=== PATIENT | male | born 1980 | race Caucasian/White ===

== ENCOUNTER 2019-04-05 10:15 | Outpatient (CLI) | payer BC, SELFPAY ==
[2019-04-05 14:14] LABS: Cholesterol 223 mg/dL (50-200); HDL Cholesterol 67 mg/dL (40-60); LDL CHOLESTEROL 141 mg/dL (<100); Triglyceride 60 mg/dL (30-150)
== END 2019-04-05 10:35 ==
PROVIDERS: PCP Family Medicine; Visit Provider Family Medicine
DX: E78.5 Hyperlipidemia, unspecified (principal)
CPT/HCPCS: 36415; 80061; 83721

== ENCOUNTER 2021-04-02 09:06 | Outpatient (CLI) | payer BC, SELFPAY ==
[2021-04-02 13:11] LABS: Calculated LDL 155 mg/dL (<100); Cholesterol 243 mg/dL (<200); Glucose 128 mg/dL (74-106); HDL Cholesterol 51 mg/dL (40-60); Triglyceride 186 mg/dL (<150)
[2021-04-03 09:22] LABS: Hepatitis C Ab w Rflx HCV PCR Negative (Negative)
[2021-04-05 13:55] LABS: Testosterone, Free 10.4 ng/dL (4.46-17.1); Testosterone, Total 326 ng/dL (240-950)
== END 2021-04-02 09:07 | disposition home or self-care (01) ==
LOC: LOS 09:06
PROVIDERS: PCP Family Medicine; Referring Provider Family Medicine; Visit Provider Family Medicine
DX: Z00.00 Encounter for general adult medical examination without abnormal findings (principal); E78.5 Hyperlipidemia, unspecified; R73.9 Hyperglycemia, unspecified; Z11.59 Encounter for screening for other viral diseases; R68.82 Decreased libido; R63.5 Abnormal weight gain
CPT/HCPCS: 36415; 80061; 82947; 84402; 84403; 86803

== ENCOUNTER 2021-10-27 14:34 | Emergency (ER) | payer BC, SELFPAY ==
--- NOTE | 2021-10-27 14:30 | RT.EKG_ITS ---
APPROVED REPORT Exam: Resting ECG Reason for Exam: chest pain, trouble breathing Patient Location: E HR:77 bpm ECG Measurements Heart Rate 77 AXIS KS 150 P 59 QRSd 102 QRS 50 QT 356 T 11 QTc 402 Conclusion Sinus rhythm...normal P axis, V-rate 60- 99 Probable left atrial enlargement...P >50mS, <-0.10mV V1 Consider inferior infarct...Q >35mS in II III aVF. Sinus. No STEMI. I have reviewed and interpreted ECG and agree with software generated interpretation.
[2021-10-27 14:47] VITALS: BP 150/97; PULSE 83; RESP 18; TEMP 36.6; O2SAT 97
--- NOTE | 2021-10-27 14:59 | ED.GENADUL_ITS ---
Discharge Plan Disposition Patient Disposition: HOME Condition: Stable Discharge Details Clinical Impression: Chest pain Primary Care Provider: Hector Leyva ED Provider: Aantoliy Capps Home Meds and New Rx's Prescriptions: Continued trazodone 100 mg Tablet 200 mg PO QHS RF: 0 escitalopram oxalate 20 mg Tablet 20 mg PO DAILY RF: 0 Discharge Instructions Instructions: Chest Pain (ED) Additional Instructions: Your ekg, chest xray and blood work did not show any concerning findings at this time follow up with your primary care provider within 1 week if you feel more ill, have worsening pain or difficulty breathing return to the emergency department Medical Decision Making 41 yo male who denies chronic medical problems comes in with 7 days of constant dull left sided chest pain. He states he gets tested at work frequently for covid and tested positive on 09/26 and developed cough and general weakness that resolved after a week. He had been doing well until the chest pain started. HE denies fevers, chills, dyspnea, n/v, diaphoresis, radiation of the pain or incr eased pain with exertion. He appears well systemically and has clear lungs, no murmurs, no jvd, no leg swelling or calf tenderness, no findings to suggest dvt on exam. I suspect chest wall pain less likely pleurisy. Will evaluate for possible nstemi, heart score is 2. Wells low and perc negative so doubt PE. No tearing back pain and normal vascular exam so doubt dissection. pt's labs and cxr unremarkable and he remains stable in no distress. Given his low heart score and over 3 hours since pain onset do not feel repeat troponin indicated. He is stable for d/c, advised to f/u with his pcp and return precautions given Differential Diagnosis Differential Diagnosis: chest wall pain, nstemi, costochondritis, pericarditis Imaging Data Radiologic Study: Attestation: I personally reviewed and interpreted this imaging study as follows: Imaging: X-Ray Radiologist's impression: IMPRESSION: No acute pulmonary findings. Lab Data Lab results reviewed: Yes I reviewed the patient's lab results. ECG Data Attestation: I personally reviewed and interpreted this ECG (s) as follows: Prior ECG tracings: not available for review Interpretation: sinus rhythm, rate of 77, no acute st t wave ischemic findings HPI General Mode of arrival: ambulatory . Date/Time Provider Initiated Documentation: 10/27/21 14:57 . Limitations to Documentation: no limitations . Information obtained by: patient . History of Present Illness 41 year old M presents to the emergency department with the chief complaint of chest pain, described as mild, Quality is described as aching, and is localized to the chest. Patient reports no radiation. and it has been constant. No relieving factors improve symptom(s), No exacerbating factors reported . Patient notes no other symptoms.. Patient did receive the following treatments prior to arrival, none Related Data Home Medications Medication Instructions Recorded Confirmed escitalopram oxalate 20 mg PO DAILY 10/27/21 10/27/21 trazodone 200 mg PO QHS 10/27/21 10/27/21 Allergies Allergy/AdvReac Type Severity Reaction Status Date / Time hay Allergy Other (See Uncoded 10/27/21 14:49 Comment) General Stated Complaint: Chest Pain REN: 2 Review of Systems All systems reviewed & are unremarkable except as noted in HPI and below Constitutional Constitutional: Denies chills, Denies fever(s) and Denies weakness Cardiovascular Cardiovascular: Denies dyspnea Respiratory Respiratory: Denies cough and Denies dyspnea Gastrointestinal Gastrointestinal: Denies abdominal pain, Denies nausea and Denies vomiting Musculoskeletal Musculoskeletal: Denies joint swelling Neurologic Neurologic: Denies weakness Psychiatric Psychiatric: Denies depression [facility] Active Problem List (Updated 10/27/21 @ 16:23 by Anatoliy Capps MD) Chest pain (Acute) Social History Smoking/Tobacco Use Status: Current every day Tobacco Type: smokeless tobacco Smoking risk assessment performed?: Yes Alcohol Intake: current Alcohol Intake frequency: a few times a week Alcohol type: beer Drug use: Never Substance use type: does not use Do you feel safe at home: Yes Do you feel safe in your relationship?: Yes Exam Const General: no acute distress Orientation: alert [facility] Head: normal to inspection Ears: external ears normal General nose exam: external nose normal Mouth: moist mucous membranes Eyes General: appearance normal, both eyes and all related structures Neck Neck: normal visual inspection Chest Chest: normal inspection of the chest, no crepitus and no masses Resp Effort & Inspection: normal respiratory effort and able to speak in complete sentences Cardio Rate: regular rate GI Palpation: soft and nontender Skin General skin exam: no rashes or lesions noted Neuro General: patient alert and patient oriented x3 Extrem General: normal to inspection Psych Mental Status: mental status grossly normal Course Vital Signs Vital signs: Vital Signs Temperature 36.6 C 10/27/21 14:47 Pulse 83 10/27/21 14:47 Respiratory Rate 18 10/27/21 14:47 Blood Pressure 150/97 H 10/27/21 14:47 Pulse Oximetry 97 10/27/21 14:47 Temperature 36.6 C 10/27/21 14:47 Pulse 83 10/27/21 14:47 Respiratory Rate 18 10/27/21 14:47 Respiratory Effort Non-Labored 10/27/21 14:50 Blood Pressure 150/97 H 10/27/21 14:47 Blood Pressure Position Sitting 10/27/21 14:47 Pulse Oximetry 97 10/27/21 14:47 Oxygen Delivery Method Room Air 10/27/21 14:47 Oxygen Flow Rate 0 10/27/21 14:47 Pain Level 0 10/27/21 14:47
--- NOTE | 2021-10-27 15:00 | DI.RAD_ITS ---
Exam(s) XR CHEST 2V PA LATERAL EXAM: XR CHEST 2V PA LATERAL CLINICAL HISTORY: chest pain. TECHNIQUE: 2D digital imaging was performed. COMPARISON: No exams were available for comparison FINDINGS: Heart size is normal. The mediastinum is not widened. Lungs are clear. No infiltrates nor pleural effusions. IMPRESSION: No acute pulmonary findings. DATA REPOSITORY: RADIATION DOSE DELIVERED:
[2021-10-27 15:12] VITALS: RESP 15
[2021-10-27 15:38] LABS: Abs Immature Grans 0.02 10^3/uL (0.0-0.06); Absolute Basophil Count 0.06 10^3/uL (0.0-0.2); Absolute Eosinophil Count 0.23 10^3/uL (0.0-0.7); Absolute Lymphocyte Count 1.98 10^3/uL (1.2-3.4); Absolute Monocyte Count 0.37 10^3/uL (0.1-0.8); Absolute Neutrophil Count 3.91 10^3/uL (1.2-6.7); Basophils % 0.9; Eosinophils % 3.5; HCT 43.4 % (40.0-50.0); HGB 14.8 g/dL (13.5-17.5); Immature Grans % 0.3; Lymphocytes % 30.1; MCH 29.4 pg (27.0-33.0); MCHC 34.1 % (32.0-36.0); MCV 86.3 fL (80-95); MPV 8.9 fL (8.0-11.0); Monocytes % 5.6; Neutrophils % 59.6; Nucleated RBC 0 %; Platelet Count 279 10^3/uL (130-400); RBC 5.03 10^6/uL (4.36-5.78); RDW 11.7 % (11.8-14.1); WBC 6.57 10^3/uL (4.4-10.8)
[2021-10-27 16:14] LABS: ALT 32 U/L (16-63); AST 22 U/L (15-37); Albumin 4.6 g/dL (3.4-5.0); Alkaline Phosphatase 61 U/L (46-116); BUN 17 mg/dL (7-18); Bilirubin, Total 0.5 mg/dL (0.2-1.0); Calcium 9.2 mg/dL (8.5-10.1); Chloride 102 mmol/L (98-107); Glucose 94 mg/dL (74-106); Magnesium 2.3 mg/dL (1.8-2.4); Potassium 4.1 mmol/L (3.5-5.1); Sodium 139 mmol/L (136-145); Total Protein 8.4 g/dL (6.4-8.2)
[2021-10-27 16:16] LABS: Troponin I < 0.05 ng/mL (<0.06)
[2021-10-27 16:24] VITALS: PULSE 69; RESP 19; O2SAT 94
[2021-10-27 16:30] VITALS: PULSE 72; RESP 15; O2SAT 94
[2021-10-27 16:40] VITALS: BP 137/83; PULSE 64; RESP 12; O2SAT 95
[2021-10-27 16:45] VITALS: BP 137/83; PULSE 64; RESP 12; TEMP 36.6; O2SAT 95
== END 2021-10-27 16:45 | disposition home or self-care (01) ==
PROVIDERS: Emergency Provider Emergency Medicine; PCP Family Medicine
DX: R07.89 Other chest pain (principal); U09.9 Post COVID-19 condition, unspecified
CPT/HCPCS: 36415; 80053; 93005; 99285; 71046; 83735; 84484; 85025; 93010; 99284

== ENCOUNTER 2022-11-17 04:00 | Outpatient (CLI) | payer BC, SELFPAY ==
[2022-11-17 13:20] LABS: ALT 32 U/L (16-63); AST 21 U/L (15-37); Albumin 4.1 g/dL (3.4-5.0); Alkaline Phosphatase 55 U/L (46-116); Anion Gap 7.2 mmol/L (3-11); BUN 14 mg/dL (7-18); Bilirubin, Total 0.4 mg/dL (0.2-1.0); CO2 29.8 mmol/L (21.0-32.0); CREATININE 1.2 mg/dL (0.70-1.30); Calcium 9.3 mg/dL (8.5-10.1); Calculated LDL 175 mg/dL (<100); Chloride 103 mmol/L (98-107); Cholesterol 277 mg/dL (<200); Estimated GFR 76.48 (mL/min/1.73m2); Glucose 96 mg/dL (74-106); HDL Cholesterol 65 mg/dL (40-60); Potassium 4.4 mmol/L (3.5-5.1); Sodium 140 mmol/L (136-145); Total Protein 7.4 g/dL (6.4-8.2); Triglyceride 185 mg/dL (<150)
[2022-11-17 13:33] LABS: Bilirubin, Direct 0.1 mg/dL (0.0-0.2)
== END 2022-11-17 04:01 | disposition home or self-care (01) ==
LOC: LOS 04:00
PROVIDERS: PCP Family Medicine; Visit Provider Family Medicine
DX: E78.5 Hyperlipidemia, unspecified (principal); E87.1 Hypo-osmolality and hyponatremia; G72.89 Other specified myopathies
CPT/HCPCS: 36415; 80048; 80061; 80076

== ENCOUNTER 2023-11-18 08:53 | Outpatient (CLI) | payer BC, SELFPAY ==
[2023-11-18 12:48] LABS: Calculated LDL 200 mg/dL (<100); Cholesterol 285 mg/dL (<200); Glucose 105 mg/dL (74-106); HDL Cholesterol 60 mg/dL (40-60); Triglyceride 129 mg/dL (<150)
== END 2023-11-18 08:54 | disposition home or self-care (01) ==
LOC: LOS 08:54
PROVIDERS: PCP Family Medicine; Referring Provider Family Medicine; Visit Provider Family Medicine
DX: E78.5 Hyperlipidemia, unspecified (principal); R73.9 Hyperglycemia, unspecified
CPT/HCPCS: 36415; 80061; 82947

== ENCOUNTER 2024-11-28 10:03 | Outpatient (CLI) | payer OTHER, SELFPAY ==
[2024-11-28 12:58] LABS: Calculated LDL 159 mg/dL (<100); Cholesterol 261 mg/dL (<200); HDL Cholesterol 65 mg/dL (40-60); Triglyceride 188 mg/dL (<150)
[2024-11-28 13:09] LABS: Hemoglobin A1C 5.5 % (<5.7)
[2024-11-28 23:05] LABS: PSA, Screening 0.9 ng/mL (<=2.5)
[2024-11-30 10:36] LABS: Lipoprotein (a) <7 nmol/L (<75)
== END 2024-11-28 10:04 | disposition home or self-care (01) ==
LOC: LOS 10:03
PROVIDERS: PCP Family Medicine; Visit Provider Family Medicine
DX: E78.5 Hyperlipidemia, unspecified (principal); R73.9 Hyperglycemia, unspecified; Z12.5 Encounter for screening for malignant neoplasm of prostate
CPT/HCPCS: 36415; 80061; 83695; 84153; 83036

== ENCOUNTER 2025-06-20 07:30 | Outpatient (CLI) | payer OTHER, SELFPAY ==
--- NOTE | 2025-06-20 07:30 | RT.EKG_ITS ---
APPROVED REPORT Exam: Resting ECG Reason for Exam: Chest pressure Patient Location: O HR:72 bpm ECG Measurements Heart Rate 72 AXIS OK 155 P 64 QRSd 95 QRS 61 QT 380 T 20 QTc 416 Conclusion Sinus rhythm...normal P axis, V-rate 50- 99 Consider RVH or posterior infarct...large R in V1 Nondiagnostic l inferior Q waves...Qs add to 80 mS in II III aVF
== END 2025-06-20 07:31 | disposition home or self-care (01) ==
LOC: DI.CM 07:31
PROVIDERS: PCP Family Medicine; Visit Provider Family Medicine
DX: Z71.89 Other specified counseling (principal)
CPT/HCPCS: 93010

== ENCOUNTER 2025-06-25 01:09 | Outpatient (CLI) | payer OTHER, SELFPAY ==
--- NOTE | 2025-06-25 05:45 | ETT_ITS ---
APPROVED REPORT Exam: Exercise Treadmill Patient Location: Out-Patient Room/Bed: Stress Nurse: Arti Juarez RN, Lynn Montgomery RN Ordering Provider:ASHOK JEAN, Contact Number: [phone] BMI: 36.48 Baseline Rhythm: Sinus Rhythm Indications: abnl ekg Medical History Medical History: CP, HLD, obesity, anxiety, depression, fatigue Cardiac Medications: Doxepin,fluxoetine Allergies: hay Cardiac Risk Factors: HLD, smoker, obesuty, chewing tobacco Previous Cardiac Procedures: none Pretest Chest Pain Characteristics: No chest pain Exercise History: Physically active Physical Disabilities: none Lung Sounds: Clear to auscultation Heart Sounds: Regular Stress Test Details Test: Exercise stress testing was performed using a Yasmani protocol. Rest Stress HR Resting HR Supine: 64 bpm Max Heart Rate (APMHR): 174 bpm Resting HR Standin bpm Target HR (85% APMHR): 148 bpm Max HR Achieved: 148 bpm % of APMHR: 85 Recovery HR: 90 bpm HR response to stress: Normal HR response to stress BP Resting BP Supine: 138/92 mmHg Resting BP Standin/64 mmHg Max BP: 178/70 mmHg Recovery BP: 130/88 mmHg BP response to stress: Normal blood pressure response to stress. ECG Resting ECG: Sinus Rhythm Stress ECG: Sinus Tachycardia ST Change: No significant ST segment changes noted Arrhythmia: none Recovery ECG: Sinus Rhythm Recovery ST Change: No significant ST segment changes noted Clinical Reason for Termination: Target HR Achieved, pt requested Stress Symptoms: none Exercise duration: 10 min45 sec Highest Stage Reached: Stage 4: 4.2 mph at 16% grade. Exercise capacity: 13.05 METs Angina Score: None Shoemaker Treadmill Score: 10.4 Rate Pressure Product: [id number] Stress ECG Conclusion 1. Resting electrocardiogram was normal 2. Patient exercised on the Yasmani protocol completed workload of 13 METS 3. Normal heart rate and blood pressure response to exercise. The patient achieved 85% of maximal predicted heart rate for age 4. There was no electrocardiographic evidence of myocardial ischemia 5. There were no significant dysrhythmias Shoemaker Treadmill Score is 10.4 which is Low risk. Stress Test Summary STAGE Time (mins) Speed (mph) Grade (%) HR BP SpO2 SYMPTOMS METS Supine 64 138/92 97 Standing 75 114/64 97 1 3 1.7 10 102 97 4.5 2 6 2.5 12 119 98 7 3 9 3.4 14 130 93 10 4 12 4.2 16 148 13 1 min recovery 118 178/70 97 3 min recovery 93 114/80 98 6 min recovery 90 130/80 96 Pt denied any symptoms before, during or after test. Pt met target HR and requested to stop treadmill. Pt left ambulatory in no apparent distress
== END 2025-06-25 01:29 ==
PROVIDERS: PCP Family Medicine; Visit Provider Internal Medicine Cardiovascular Disease
DX: R94.31 Abnormal electrocardiogram [ECG] [EKG] (principal)
CPT/HCPCS: 93017